=== PATIENT | female | born 1965 | race Caucasian/White ===

== ENCOUNTER 2016-11-03 00:07 | Emergency (ER) | payer MEDICAID, OTHER ==
[~2016-11-03] VITALS: Ht 165.1 cm; Wt 81.6 kg
[2016-11-03 00:14] VITALS: BP 144/87
[2016-11-03] MEDS ORDERED: IBUPROFEN 400 MG TABLET PO ONE (02:00)
[2016-11-03] MEDS ORDERED: IBUPROFEN 400 MG TABLET ONE (02:03)
== END 2016-11-03 03:50 | disposition home or self-care (01) ==
LOC: ER 00:09
DX: S90.32XA Contusion of left foot, initial encounter (principal); S90.31XA Contusion of right foot, initial encounter; W20.8XXA Other cause of strike by thrown, projected or falling object, initial encounter; Y93.89 Activity, other specified; Y92.000 Kitchen of unspecified non-institutional (private) residence as the place of occurrence of the external cause; Y99.9 Unspecified external cause status
CPT/HCPCS: 73630-TC; A4606; Z7610

== ENCOUNTER 2017-06-02 21:50 | Emergency (ER) | payer MEDICAID, OTHER ==
[~2017-06-02] VITALS: Ht 154.9 cm; Wt 81.6 kg
[2017-06-02 21:52] VITALS: BP 133/87
[2017-06-02] MEDS ORDERED: IBUPROFEN 400 MG TABLET ONE (22:27)
[2017-06-02] MEDS ORDERED: IBUPROFEN 400 MG TABLET PO ONE (22:30)
== END 2017-06-03 00:49 | disposition home or self-care (01) ==
LOC: ER 21:51
DX: S80.02XA Contusion of left knee, initial encounter (principal); V87.8XXA Person injured in other specified noncollision transport accidents involving motor vehicle (traffic), initial encounter; Y93.55 Activity, bike riding; Y92.89 Other specified places as the place of occurrence of the external cause; Y99.9 Unspecified external cause status
CPT/HCPCS: 29505; 73564 ×2; 99284; A4606; Z7610

== ENCOUNTER 2018-05-15 13:20 | Inpatient (IN) | payer MEDICAID, OTHER ==
[~2018-05-15] VITALS: Ht 162.6 cm; Wt 83.0 kg
--- NOTE | 2018-05-15 13:50 | NUR ---
BIB C/O LEFT SIDED CP RADIATES TO L ARM SINCE LAST NIGHT. PT AAOX3, VSS. LT CP 8/10 RADIATING TO BACK & LT ARM. DENIES SOB, DIZZINESS, N/V, ABD PAIN @ THIS TIME. 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 @ BS & WILL CONT TO MONITOR. AWAITING EVAL BY MD/JEWELRY MECHANIC.
[2018-05-15 13:56] LABS: BASOPHILS % (AUTO) 1.6 % (0.0-2.0); EOSINOPHILS % (AUTO) 2.7 % (0.0-6.0); HEMATOCRIT 42 % (33-45); HEMOGLOBIN 14.3 g/dL (11.5-14.8); LYMPHOCYTES % (AUTO) 41.3 % (20.0-44.0); MEAN CORPUSCULAR HGB CONC 34 g/dl (31.0-36.0); MEAN CORPUSCULAR VOLUME 88 fL (82-100); MONOCYTES % (AUTO) 5.6 % (2.0-12.0); NEUTROPHILS % (AUTO) 48.8 % (43.0-81.0); PLATELET COUNT (AUTO) 280 /CMM (150-450); RDW COEFFICIENT OF VARIATION 12.6 (11.5-15.0); RED BLOOD CELL COUNT(AUTO) 4.78 MIL/uL (4.0-5.2)
[2018-05-15 13:57] LABS: BASOPHILS # (AUTO) 0.1 /CMM (0.0-0.2); LYMPHOCYTES # (AUTO) 2.9 /CMM (0.8-4.8); MONOCYTES # (AUTO) 0.4 /CMM (0.1-1.30); NEUTROPHILS # (AUTO) 3.4 /CMM (1.8-8.9)
[2018-05-15 14:11] LABS: CALCIUM, SERUM 9.1 mg/dL (8.5-10.1); CARBON DIOXIDE 29 mmol/L (21-32); CHLORIDE 103 mmol/L (98-107); CREATININE 0.7 mg/dL (0.6-1.3); GLUCOSE 125 mg/dL (74-106); POTASSIUM 3.6 mmol/L (3.5-5.1); SODIUM SERUM 139 mmol/L (136-145); UREA NITROGEN, BLOOD 14 mg/dL (7-18)
[2018-05-15 14:13] LABS: ALANINE AMINOTRANSFERASE 35 U/L (12-78); ALBUMIN 3.8 g/dL (3.4-5.0); ALKALINE PHOSPHATASE 143 U/L (46-116); ASPARTATE AMINOTRANSFERASE 23 U/L (15-37); BILIRUBIN,TOTAL 0.5 mg/dL (0.2-1.0); TOTAL PROTEIN, SERUM 7.5 g/dL (6.4-8.2)
[2018-05-15 14:15] LABS: TROPONIN I < 0.017 ng/mL (0.00-0.056)
[2018-05-15 14:22] LABS: INR 0.85 (0.85-1.15)
[2018-05-15] MEDS ORDERED: ONDANSETRON HCL/PF 4 MG/2 ML VIAL IVP ONE (14:30)
[2018-05-15] MEDS ORDERED: IV NS 0.9% 500 ML BAG IV ONE (14:30)
[2018-05-15] MEDS ORDERED: MORPHINE SULFATE INJ 2 MG/ML DISP.SYRIN IV ONE (14:30)
[2018-05-15] MEDS ORDERED: ONDANSETRON HCL/PF 4 MG/2 ML VIAL ONE (14:36)
[2018-05-15] MEDS ORDERED: MORPHINE SULFATE INJ 4 MG/ML DISP.SYRIN ONE (14:36)
[2018-05-15] MEDS ORDERED: CT SWABBABLE VALVE TRANS SET 1 EA INFUS.SET MC ONE (14:39)
[2018-05-15] MEDS ORDERED: IOHEXOL-350 100 ML VIAL IV ONE (14:39)
[2018-05-15] MEDS ORDERED: IV NS 0.9% 250 ML IV ONE (14:39)
--- NOTE | 2018-05-15 14:46 | NUR ---
MEDICATED FOR PAIN PER ERMD ORDER, PT MITRA WELL. PT TO CT VIA TAI.
--- NOTE | 2018-05-15 15:30 | NUR ---
PT BACK FROM CT. PT STS LT CP 09/28 & BETTER. DENIES SOB, DIZZINESS, N/V, ARM/JAW PAIN, ABD PAIN OR ANY DISCOMFORT @ THIS TIME. WILL CONT TO MONITOR.
[2018-05-15] MEDS ORDERED: SERT50TA12 PO (17:28)
[2018-05-15] MEDS ORDERED: ERGO500040 PO (17:28)
[2018-05-15] MEDS ORDERED: NAPR-1192 PO (17:28)
[2018-05-15] MEDS ORDERED: ATOR40TA PO (17:28)
[2018-05-15] MEDS ORDERED: FERR325T23 PO (17:28)
[2018-05-15] MEDS ORDERED: PANT40TA4 PO (17:28)
[2018-05-15] MEDS ORDERED: ROPI1TAB4 PO (17:28)
[2018-05-15] MEDS ORDERED: ASPI-1152 PO (17:28)
[2018-05-15] MEDS ORDERED: FENO145T35 PO (17:28)
[2018-05-15] MEDS ORDERED: LOSA1TAB39 PO (17:28)
[2018-05-15] MEDS ORDERED: NITROGLYCERIN PACKET 1 GM PACKET TD ONE (17:30)
[2018-05-15] MEDS ORDERED: KETOROLAC TROMETHAMINE INJ 30 MG/ML VIAL IV ONE (17:30)
[2018-05-15] MEDS ORDERED: ASPIRIN 325 MG TABLET PO ONE (17:30)
[2018-05-15] MEDS ORDERED: KETOROLAC TROMETHAMINE 15 MG/ML VIAL ONE (17:32)
[2018-05-15] MEDS ORDERED: NITROGLYCERIN PACKET 1 GM PACKET ONE (17:33)
[2018-05-15] MEDS ORDERED: ASPIRIN 325 MG TABLET ONE (17:33)
--- NOTE | 2018-05-15 17:46 | NUR ---
PT MEDICATED FOR CP PER ERMD ORDER, PT MITRA WELL. PT STS PAIN IS 8/10. DENIES SOB, MENENDEZ, DIZZINESS, N/V @ THIS TIME. WILL CONT TO MONITOR.
--- NOTE | 2018-05-15 19:22 | NUR ---
PT RESTING EYES CLOSED BUT EASILY AWAKEN WITH VERBAL STIMULI. PT CP STS 12/26 & MITRA WELL @ THIS TIME. DENIES SOB, DIZZINESS, N/V, ARM/JAW PAIN @ THIS TIME. WILL CONT TO MONITOR.
--- NOTE | 2018-05-15 19:48 | NUR ---
PT IS ASSIGNED TO 313-2, DX: CP, AND ACCEPTING MD: DR PINEDA
[2018-05-15 20:50] VITALS: BP 129/80
--- NOTE | 2018-05-15 20:50 | NUR ---
RECEIVED PATIENT FROM ER FOR C/O LEFT SIDED CHEST PAIN. AO X 3, ABLE TO MAKE NEEDS KNOWN. NO ACUTE DISTRESS NOTED. 4/10 LEFT SIDED CHEST PAIN RADIATING TO THE BACK. IV SITE PATENT, INTACT; FLUSHED. SKIN INTACT. SAFETY REMINDERS GIVEN. ORIENTATION TO ROOM AND UNIT GIVEN TO PATIENT. ON LOW BED WITH BILATERAL UPPER SIDE RAILS UP. CALL [place] WITHIN EASY REACH. WILL CONTINUE TO MONITOR. WILL NOTIFY DR. PINEDA FOR ADMISSION ORDERS.
[2018-05-15 21:00] VITALS: BP 129/80
[2018-05-15] MEDS ORDERED: ZOLPIDEM TARTRATE 5 MG TABLET PO PRN (21:30)
[2018-05-15] MEDS ORDERED: TRAMADOL HCL 50 MG TABLET PO PRN (21:30)
[2018-05-15] MEDS ORDERED: HYDROCODONE/APAP 5/325MG 1 EACH TABLET PO PRN (21:30)
[2018-05-15] MEDS ORDERED: ASPIRIN EC 81 MG TABLET.DR PO SCH (21:30)
[2018-05-15] MEDS ORDERED: ACETAMINOPHEN ES 500 MG TABLET PO PRN (21:30)
--- NOTE | 2018-05-15 21:49 | NUR ---
RN NOTES PER PATIENT, SHE TAKES ASA 81 MG PO QD AND LIPITOR 40 MG PO HS AT HOME. OK TO CONTINUE PER DR. PINEDA; ORDERED IN COMPUTER.
[2018-05-15] MEDS ORDERED: ATORVASTATIN 40 MG TABLET PO SCH (22:00)
[2018-05-16] VITALS: BP 111/65
[2018-05-16 04:00] VITALS: BP_SYST 101; BP_SYST 102; BP_DIAS 57
--- NOTE | 2018-05-16 06:00 | NUR ---
PATIENT ASLEEP, EASILY AROUSABLE. RESPIRATIONS EVEN. NO SIGNS OF PAIN NOTED. TELE READING AT THIS TIME SINUS BAKARI HR 58. DUE MED GIVEN. NEEDS ATTENDED. SAFETY PRECAUTIONS AND COMFORT MEASURES IN PLACE. WILL GIVE REPORT TO DAY SHIFT FOR CONTINUITY OF CARE.
[2018-05-16 06:57] LABS: THYROID STIMULATING HORMONE 9.028 uIU/mL (0.358-3.74)
[2018-05-16 06:58] LABS: CALCIUM, SERUM 8.7 mg/dL (8.5-10.1); CREATININE 0.7 mg/dL (0.6-1.3); POTASSIUM 3.6 mmol/L (3.5-5.1)
--- NOTE | 2018-05-16 07:20 | NUR ---
VALVE SETTER INITIAL NOTES Report received at bedside. Patient received in bed, awake, verbally responsive. Complaints of dizziness, awaiting for Field Service Consultant consult. NPO since midnight. No SOB/labored breathing noted. Denies any pain. Safety measures in place. Will continue to monitor and assess patient. Tele: SR; HR 59 Features Editor: Maegan
[2018-05-16 07:57] LABS: HEMATOCRIT 38 % (33-45); HEMOGLOBIN 12.8 g/dL (11.5-14.8); LYMPHOCYTES % (AUTO) 45.1 % (20.0-44.0); MEAN CORPUSCULAR HGB CONC 34 g/dl (31.0-36.0); MEAN CORPUSCULAR VOLUME 90 fL (82-100); PLATELET COUNT (AUTO) 209 /CMM (150-450); RDW COEFFICIENT OF VARIATION 13.4 (11.5-15.0); RED BLOOD CELL COUNT(AUTO) 4.22 MIL/uL (4.0-5.2); WHITE BLOOD COUNT (AUTO) 7.4 K/uL (4.3-11.0)
[2018-05-16 07:58] LABS: BASOPHILS % (AUTO) 0.4 % (0.0-2.0); EOSINOPHILS % (AUTO) 1.9 % (0.0-6.0); LYMPHOCYTES # (AUTO) 3.3 /CMM (0.8-4.8); MONOCYTES # (AUTO) 0.6 /CMM (0.1-1.30); MONOCYTES % (AUTO) 7.6 % (2.0-12.0); NEUTROPHILS # (AUTO) 3.3 /CMM (1.8-8.9)
[2018-05-16 08:00] VITALS: BP 97/64
[2018-05-16] MEDS ORDERED: LOSARTAN/HCTZ 50-12.5MG/ 1 EA TABLET PO SCH (09:00)
[2018-05-16] MEDS ORDERED: ASPIRIN EC 81 MG TABLET.DR PO SCH ×2 (09:00→21:30)
[2018-05-16] MEDS ORDERED: FENOFIBRATE NANOCRYS (145 MG) 145 MG TABLET PO SCH (09:00)
[2018-05-16] MEDS ORDERED: FERROUS SULFATE (325 MG) 325 MG/TAB TABLET PO SCH (09:00)
[2018-05-16] MEDS ORDERED: ASPIRIN 81 MG TAB.CHEW PO SCH (09:00)
[2018-05-16] MEDS ORDERED: ropiniROLE 0.5 MG TABLET PO SCH (09:00)
[2018-05-16] MEDS ORDERED: SERTRALINE HCL 50 MG TABLET PO SCH (09:00)
--- NOTE | 2018-05-16 09:10 | NUR ---
SURGICAL SERVICES MANAGER NOTES Mica Washer Gluer at bedside around 0820 for assessment Primary MD at bedside around 0850: reinforce to repeat TSH with PMD after discharge, remove nitro-bid d/t trending down of blood pressure, and okay to give meds prior to CT procedure
--- NOTE | 2018-05-16 09:37 | NUR ---
SHOEMAKER CUSTOM NOTES converting technician came to interview patient around 0930 prior to procedure. Consent signed. Questions and concerns addressed. Transporting to Radiology for CT Angiogram per Paste Up Artist' order; in stable condition
[2018-05-16] MEDS ORDERED: CT SWABBABLE VALVE TRANS SET 1 EA INFUS.SET MC ONE (09:40)
[2018-05-16] MEDS ORDERED: IOHEXOL-350 100 ML VIAL IV ONE (09:40)
[2018-05-16] MEDS ORDERED: IV NS 0.9% 250 ML IV ONE (09:41)
[2018-05-16] MEDS: NAPROXEN 375 MG TABLET PO SCH ×2 (09:52→17:00)
--- NOTE | 2018-05-16 10:02 | NUR ---
TUBE FILLER NOTES Patient came back from CT in stable condition
--- NOTE | 2018-05-16 14:31 | NUR ---
MS RN - PRN NOTES Patient complained of 6/10 headache. Non-radiating, requested for tylenol.
--- NOTE | 2018-05-16 15:07 | NUR ---
MS MARLENE NOTES Spoke with Dr. Willinhgam and Dr. Schultz regarding CT Angiogram result with new order to transfer patient to [facility] for Angiogram. and daughter (Deepika) aware. Addendum: 05/16/18 at 1522 by JESUS JACKSON RN Charge Nurse aware Addendum: 05/16/18 at 1531 by JESUS JACKSON RN Spoke to Batch Attendant regarding transfer. Awaiting for availability at [facility].
[2018-05-16 16:12] VITALS: BP 129/78
--- NOTE | 2018-05-16 16:35 | NUR ---
MS MARLENE FORD NOTES Doctor ordered to transfer patient to another hospital for a procedure that is not available in this hospital. Explained to patient, spouse and daughter (which is a RN). While awaiting for available bed at the other hospital, patient and insisted that they would like to go home instead and will see their professor computer science. Patient and stated that they will have the procedure done whenever it's convenient. Explained the risks vs benefits x3 to patient and but continue to insist to go home. MD made aware. Paper Cone Machine Operator made aware. Charge Nurse made aware. Addendum: 05/16/18 at 1724 by JESUS JACKSON RN Belongings are with patient, IV access removed: cath tip intact with no bleeding noted.
[2018-05-16] MEDS ORDERED: ATORVASTATIN 40 MG TABLET PO SCH (18:00)
[2018-05-17] MEDS ORDERED: PANTOPRAZOLE 40 MG TABLET.DR PO SCH (07:30)
[2018-05-17] MEDS ORDERED: LOSARTAN POTASSIUM 25 MG TABLET PO SCH (09:00)
[2018-05-20] MEDS ORDERED: ERGOCALCIFEROL (VITAMIN D 2) 50,000 UNIT CAPSULE PO SCH (09:00)
== END 2018-05-16 17:00 | disposition left against medical advice (07) | DRG 198 ==
LOC: ER 13:21 → TELE 20:03 → MED 05-16 08:28
PROVIDERS: ADMIT Internal Medicine; ATTEND Internal Medicine
DX: I25.10 Atherosclerotic heart disease of native coronary artery without angina pectoris (principal); E78.5 Hyperlipidemia, unspecified; I10 Essential (primary) hypertension; R73.03 Prediabetes; Z91.14 Patient's other noncompliance with medication regimen; J98.11 Atelectasis
CPT/HCPCS: 36415; 71045-TC; 75574; 80048-TC; 80061-TC; 80076-TC; 84439-TC; 84443-TC; 84484-TC; 85025-TC; 85730-TC; 87081-TC; 93307-TC; A4606; J1885; J2270; J2405; J7040; J7050; Q9967; Z7610

== ENCOUNTER 2022-06-06 16:34 | Emergency (ER) | payer MEDICAID ==
[~2022-06-06] VITALS: Ht 157.5 cm; Wt 83.9 kg
[~2022-06-06 16:34] MED LIST: ASPI-1420 PO; ATOR40TA PO; ERGO500040 PO; FENO145T21 PO; FERR325T23 PO; LOSA1TAB39 PO; NAPR-1192 PO; PANT40TA49 PO; ROPI1TAB6 PO; SERT50TA12 PO
--- NOTE | 2022-06-06 16:45 | NUR ---
PT W/ C/O ON & OFF CHEST PAIN X3 DAYS. TO ER BED 11.
--- NOTE | 2022-06-06 17:30 | NUR ---
PHLEB AT BEDSIDE FOR BLOOD DRAW
[2022-06-06 17:41] LABS: BASOPHILS % (AUTO) 0.4 % (0.0-2.0); EOSINOPHILS % (AUTO) 1.9 % (0.0-6.0); HEMATOCRIT 42 % (33-45); HEMOGLOBIN 14.3 g/dL (11.5-14.8); LYMPHOCYTES % (AUTO) 48.5 % (20.0-44.0); MEAN CORPUSCULAR HGB CONC 34 g/dl (31.0-36.0); MEAN CORPUSCULAR VOLUME 89 fL (82-100); MONOCYTES # (AUTO) 0.8 K/uL (0.1-1.30); MONOCYTES % (AUTO) 7.5 % (2.0-12.0); NEUTROPHILS # (AUTO) 4.3 K/uL (1.8-8.9); NEUTROPHILS % (AUTO) 41.7 % (43.0-81.0); PLATELET COUNT (AUTO) 246 K/uL (150-450); RED BLOOD CELL COUNT(AUTO) 4.79 MIL/uL (4.0-5.2); WHITE BLOOD COUNT (AUTO) 10.2 K/uL (4.3-11.0)
--- NOTE | 2022-06-06 17:46 | NUR ---
COVID SWAB COLLECTED AND SENT TO LAB
[2022-06-06 17:54] LABS: CALCIUM, SERUM 9.4 mg/dL (8.5-10.1); CARBON DIOXIDE 27 mmol/L (21-32); CHLORIDE 103 mmol/L (98-107); CREATININE 0.7 mg/dL (0.6-1.3); GLUCOSE 111 mg/dL (74-106); POTASSIUM 3.8 mmol/L (3.5-5.1); SODIUM SERUM 139 mmol/L (136-145); UREA NITROGEN, BLOOD 17 mg/dL (7-18)
--- NOTE | 2022-06-06 18:30 | NUR ---
IV LINE ESTABLISHED ON RAC #20, LINE SALINE LOCKED.
[2022-06-06] MEDS ORDERED: IOHEXOL-300 100 ML VIAL IV ONE (19:16)
[2022-06-06] MEDS ORDERED: IV NS 0.9% 250 ML IV ONE (19:16)
--- NOTE | 2022-06-06 19:17 | NUR ---
PT TAKEN TO CT VIA TAI
--- NOTE | 2022-06-06 19:28 | NUR ---
PT RETURNED TO ER BED [address]
[2022-06-06] MEDS ORDERED: ASPIRIN 81 MG TAB.CHEW PO ONE (21:00)
[2022-06-06] MEDS ORDERED: ASPIRIN 325 MG TABLET ONE (21:07)
--- NOTE | 2022-06-07 00:43 | NUR ---
Patient does not wish to proceed with medical care recommended by Dr. Shakih. Patient given information related to possible complications, up to and including , which could occur as a result of leaving the hospital at this time. Patient verbalizes understanding of risks involved due to leaving against medical advice. Patient's daughter has signed AMA form. PT ambulatory with a steady gait IV removed. Catheter intact and site benign. Pressure and 4x4 applied to site. No bleeding noted.
[2022-06-07 00:55] VITALS: BP 141/71
== END 2022-06-07 00:55 | disposition left against medical advice (07) ==
LOC: ER 16:42
DX: R07.9 Chest pain, unspecified (principal); Z20.822 Contact with and (suspected) exposure to COVID-19; Z79.82 Long term (current) use of aspirin; Z79.899 Other long term (current) drug therapy; R73.03 Prediabetes; I10 Essential (primary) hypertension; E78.00 Pure hypercholesterolemia, unspecified; Z82.49 Family history of ischemic heart disease and other diseases of the circulatory system
CPT/HCPCS: 99285; 71275; 71045; 87426; 93005; 85025; 80048; 85378; 36415; 84484 ×2; 87081; J7050; Q9967; C9803

== ENCOUNTER 2025-06-12 14:21 | Emergency (ER) | payer MEDICAID ==
[~2025-06-12] VITALS: Ht 165.1 cm; Wt 78.5 kg
[2025-06-12 15:08] LABS: PLATELET COUNT (AUTO) 238 K/uL (150-450); RED BLOOD CELL COUNT(AUTO) 4.73 MIL/uL (4.0-5.2); RED CELL DISTRIBUTION WIDTH 14.7 % (11.5-15.0); WHITE BLOOD COUNT (AUTO) 7.3 K/uL (4.3-11.0)
[2025-06-12 15:14] LABS: CALCIUM, SERUM 9.2 mg/dL (8.5-10.1); CREATININE 0.7 mg/dL (0.6-1.3); SODIUM SERUM 138 mmol/L (136-145); UREA NITROGEN, BLOOD 14 mg/dL (7-18)
[2025-06-12 15:27] LABS: ASPARTATE AMINOTRANSFERASE 20 U/L (15-37); NT-PRO BNP 54 pg/mL (0-125); TOTAL PROTEIN, SERUM 8.5 g/dL (6.4-8.2)
[2025-06-12] MEDS ORDERED: KETO10TA2 PO (15:37)
[2025-06-12] MEDS ORDERED: CYCL5TAB PO (15:37)
[2025-06-12] MEDS ORDERED: KETOROLAC TROMETHAMINE 15 MG/ML VIAL ONE (15:38)
[2025-06-12] MEDS: IV NS 0.9% 1,000 ML BAG IV ONE (15:49)
[2025-06-12] MEDS: KETOROLAC TROMETHAMINE 15 MG/ML VIAL IV ONE (15:50)
[2025-06-12 17:01] VITALS: BP 135/88; TEMP 97.9; O2SAT 97
== END 2025-06-12 17:02 | disposition home or self-care (01) ==
LOC: ER 14:26
DX: M54.6 Pain in thoracic spine (principal); R10.9 Unspecified abdominal pain; E11.9 Type 2 diabetes mellitus without complications; I11.9 Hypertensive heart disease without heart failure; Z79.82 Long term (current) use of aspirin; Z79.899 Other long term (current) drug therapy
CPT/HCPCS: 99285; 74176; 96374; 71045; 96361; 93005; 85025; 80048; 80076; 36415; 84484; 83880; J1885; J7030

== ENCOUNTER 2025-07-11 22:38 | Inpatient (IN) | payer MEDICAID ==
[~2025-07-11] VITALS: Ht 162.6 cm; Wt 73.9 kg
[~2025-07-11 22:38] MED LIST changes: +CYCL5TAB PO; +KETO10TA2 PO
[2025-07-12] VITALS (27 sets, daily range): BP systolic 104–156; BP diastolic 68–99; TEMP 97.5–98.2; O2SAT 94–99
[2025-07-12 00:13] LABS: PLATELET COUNT (AUTO) 229 K/uL (150-450); RED BLOOD CELL COUNT(AUTO) 4.55 MIL/uL (4.0-5.2); RED CELL DISTRIBUTION WIDTH 14.3 % (11.5-15.0); WHITE BLOOD COUNT (AUTO) 7.9 K/uL (4.3-11.0)
[2025-07-12 00:21] LABS: CALCIUM, SERUM 9.0 mg/dL (8.5-10.1); CREATININE 0.8 mg/dL (0.6-1.3); SODIUM SERUM 140 mmol/L (136-145); UREA NITROGEN, BLOOD 17 mg/dL (7-18)
[2025-07-12] MEDS ORDERED: ASPIRIN 325 MG TABLET ONE (00:39)
[2025-07-12 00:41] LABS: NT-PRO BNP 780 pg/mL (0-125)
[2025-07-12] MEDS: ASPIRIN EC 325 MG TABLET.DR PO ONE (00:41)
[2025-07-12] MEDS ORDERED: ENOXAPARIN SODIUM 60 MG/0.6 ML DISP.SYRIN SQ ONE (02:11)
[2025-07-12] MEDS: ENOXAPARIN SODIUM 60 MG/0.6 ML DISP.SYRIN SQ ONE (02:16)
[2025-07-12] MEDS ORDERED: OLME1TAB90 PO (02:52)
[2025-07-12] MEDS ORDERED: CYCLOBENZAPRINE 10 MG TABLET ONE (03:09)
[2025-07-12] MEDS: CYCLOBENZAPRINE 10 MG TABLET PO ONE (03:19)
[2025-07-12] MEDS ORDERED: Z GUARD REMEDY 4 OZ OINT TP PRN (03:30)
[2025-07-12] MEDS ORDERED: MAG HYDROX/AL HYDROX/SIMETH 30 ML UDC PO PRN (03:30)
[2025-07-12] MEDS ORDERED: ZOLPIDEM TARTRATE 5 MG TABLET PO PRN (03:30)
[2025-07-12] MEDS ORDERED: MAGNESIUM HYDROXIDE 30 ML UDC PO PRN (03:30)
[2025-07-12] MEDS ORDERED: ONDANSETRON HCL/PF 4 MG/2 ML VIAL IVP PRN (03:30)
[2025-07-12] MEDS: IV D5/ 0.9% NACL 1,000 ML IV SCH (04:32)
[2025-07-12] MEDS: ACETAMINOPHEN 325 MG TABLET PO PRN (05:21)
[2025-07-12 07:38] LABS: LDL 153 mg/dL (0-99)
[2025-07-12] MEDS: ASPIRIN EC 81 MG TABLET.DR PO SCH (08:29)
[2025-07-12] MEDS ORDERED: HEPARIN INFUSION/D5W 500 ML IV PRN (09:00)
[2025-07-12] MEDS: NITROGLYCERIN 0.4 MG/TAB BOTTLE SL PRN (10:20)
[2025-07-12] MEDS: IV D5/ 0.9% NACL 1,000 ML IV PRN (11:00)
[2025-07-12 11:07] LABS: INR 1.0 (0.91-1.10)
[2025-07-12] MEDS: NTG 50 MG/D5W250 ML BOTTL 250 ML IV PRN (11:45)
[2025-07-12] MEDS ORDERED: LIDOCAINE HCL/MPF 1% 30 ML VIAL IJ ONE (14:19)
[2025-07-12] MEDS ORDERED: IV SET PRIMARY PUMP SET 1 EA INFUS.SET MC ONE (14:19)
[2025-07-12] MEDS ORDERED: IV NS 0.9% 1,000 ML ONE (14:19)
[2025-07-12] MEDS ORDERED: NITROGLYCERIN IN 5 % DEXTROSE 250 ML IV ONE (14:20)
[2025-07-12] MEDS ORDERED: IODIXANOL 150 ML IV ONE (14:37)
[2025-07-12] MEDS ORDERED: FENTANYL PF 100MCG/2ML AMPUL ONE (14:53)
[2025-07-12] MEDS ORDERED: MIDAZOLAM HCL 2 MG/2ML VIAL ONE (14:53)
[2025-07-12] MEDS: HEPARIN SODIUM, PORCINE 5000 UNITS/1 ML VIAL IV ONE (16:00)
[2025-07-12] MEDS: HEPARIN INFUSION/D5W 500 ML IV PRN (16:00)
[2025-07-12] MEDS: ATORVASTATIN 40 MG TABLET PO SCH (21:19)
[2025-07-12] MEDS ORDERED: ATORVASTATIN 10 MG TABLET PO SCH (22:00)
[2025-07-12] MEDS: HYDROMORPHONE 1 MG/1 ML DISP.SYRIN IV PRN (22:34)
[2025-07-13] VITALS: BP_SYST 129; BP_SYST 130; BP_DIAS 69; BP_DIAS 78; TEMP 98.8; O2SAT 94
[2025-07-13 00:13] VITALS: BP 120/73; O2SAT 97
[2025-07-13 00:30] VITALS: BP 119/71; O2SAT 94
== END 2025-07-13 02:39 | disposition short-term general hospital (02) | DRG 190 ==
LOC: ER 22:41 → TELE 07-12 02:59 → ICU 07-12 10:44
PROVIDERS: ADMIT Internal Medicine; ATTEND Internal Medicine
PROC: 4A023N7 Measurement of Cardiac Sampling and Pressure, Left Heart, Percutaneous Approach (ICD-10-PCS; principal; 2025-07-12)
PROC: B211YZZ Fluoroscopy of Multiple Coronary Arteries using Other Contrast (ICD-10-PCS; 2025-07-12)
DX: I21.4 Non-ST elevation (NSTEMI) myocardial infarction (principal); E78.5 Hyperlipidemia, unspecified; I10 Essential (primary) hypertension; I70.0 Atherosclerosis of aorta; I34.0 Nonrheumatic mitral (valve) insufficiency; I25.10 Atherosclerotic heart disease of native coronary artery without angina pectoris; Z82.49 Family history of ischemic heart disease and other diseases of the circulatory system; R73.03 Prediabetes
CPT/HCPCS: 36415; 71045-TC; 80048-TC; 80061-TC; 83880; 84484-TC; 85025-TC; 85610-TC; 85730-TC; 93307-TC; A4223; A6403; G0378; J1171; J1644; J1650; J2250; J3010; J3490; J7030; J7042; Q9967